=== PATIENT | female | born 1985 | race Two or more races ===

== ENCOUNTER → 2017-07-06 09:22 | Emergency (ER) | payer OTHER ==
[~2017-07-06 09:22] MED LIST: DOXYcycline CAP(*) 100 MG PO ONE; Lidocaine 1%* 5 ML VIAL ONE; cefTRIAXone VIAL(*) 250 MG VIAL IM ONE; metroNIDAZOLE TAB* 250 MG PO ONE
[2017-07-06 10:18] LABS: Hematocrit 38 % (35-47); Hemoglobin 12.7 g/dl (12.0-16.0); Mean Corpuscular HGB Conc 34 g/dl (31-36); Mean Corpuscular Hemoglobin 29 pg (27-31); Mean Corpuscular Volume 86 fL (80-97); Mean Platelet Volume 8 um3 (7.4-10.4); Red Blood Count 4.37 10^6/ul (4.0-5.4); Red Cell Distribution Width 14 % (10.5-15)
[2017-07-06 10:31] LABS: Albumin 4.4 g/dL (3.2-5.2); BUN/Creatinine Ratio 23.7 (8-20); EGFR African American 152.9 (>60); EGFR Non-African American 118.9 (>60); Globulin 3.5 g/dL (2-4); Total Bilirubin 0.3 mg/dL (0.2-1.0); Total Protein 7.9 g/dL (6.4-8.9)
--- NOTE | 2017-07-06 10:36 | ED ---
Back Pain - HPI Summary HPI Summary: 32F presents with back pain that radiates to her pelvic floor for one month. She denies any injury. She denies any loss of bowel or bladder or urinary retention. She denies any saddle anaesthesia. She denies any fever. She denies any IV drug use. She states her LMP was a week ago but was heavier than normal. She admits to vaginal discharge. She denies any dysuria, hematuria, flank pain, urgency or frequency. She denies any n/v/d/c. She states that pain feels like cramps. The back pain is sharp. She states she gets pain into bilateral hips. She denies any numbness or tingling down the legs. She has been taking ibuprofen for pain. pain is currently 10/25. - History of Current Complaint Chief Complaint: EDAbdPain Stated Complaint: LOWER BACK/PELVIC PAIN Time Seen by Provider: 07/06/17 09:40 Hx Last Menstrual Period: week ago Pain Intensity: 5 - Allergies/Home Medications Allergies/Adverse Reactions: Allergies Allergy/AdvReac Type Severity Reaction Status Date / Time Morphine Allergy Intermediate Abdominal Verified 07/06/17 09:28 Pain PMH/Surg Hx/FS Hx/Imm Hx Endocrine/Hematology History: Denies: Hx Diabetes, Hx Thyroid Disease Cardiovascular History: Denies: Hx Hypertension Respiratory History: Denies: Hx Asthma, Hx Chronic Obstructive Pulmonary Disease (COPD) GI History: Denies: Hx Ulcer - Surgical History Surgery Procedure, Year, and Place: CHOLECYSTECTOMY, 2 C-SECTIONS, spina bifida - Immunization History Date of Tetanus Vaccine: last 5 yrs Infectious Disease History: No Infectious Disease History: Denies: Hx Hepatitis, Hx Human Immunodeficiency Virus (HIV), Traveled Outside the [place] in Last 30 Days - Family History Known Family History: Positive: Diabetes - Social History Alcohol Use: Rare Substance Use Type: Reports: None Smoking Status (MU): Current Some Day Smoker Review of Systems Negative: Fever Negative: Chest Pain Negative: Shortness Of Breath Positive: Abdominal Pain - pelvic. Negative: Vomiting, Diarrhea, Nausea Negative: dysuria Positive: Myalgia - back pain All Other Systems Reviewed And Are Negative: Yes Physical Exam Triage Information Reviewed: Yes Vital Signs On Initial Exam: Initial Vitals Temp Pulse Resp BP Pulse Ox 97.3 F 87 16 150/80 99 07/06/17 09:22 07/06/17 09:22 07/06/17 09:22 07/06/17 09:22 07/06/17 09:22 Vital Signs Reviewed: Yes Appearance: Positive: Well-Appearing Skin: Positive: Warm, Dry Head/Face: Positive: Normal Head/Face Inspection Eyes: Positive: Normal, Conjunctiva Clear Respiratory/Lung Sounds: Positive: Clear to Auscultation, Breath Sounds Present Cardiovascular: Positive: Normal, RRR Abdomen Description: Positive: Soft, Other: - mild tenderness suprapubic region Bowel Sounds: Positive: Present Pelvic Exam: Positive: external exam normal, speculum exam normal, discharge - whitish discharge, tender w/ cervical motion Musculoskeletal: Positive: Strength/ROM Intact - back, Other - tenderness lower back, neg SLR Neurological: Positive: Reflexes Intact - patella, neg babinski Psychiatric: Positive: Normal - [place] Coma Scale Coma Scale Total: 15 Diagnostics - Vital Signs Vital Signs Temp Pulse Resp BP Pulse Ox 07/06/17 09:22 97.3 F 87 16 150/80 99 - Laboratory Lab Results: Lab Results 07/06/17 Range/Units 10:04 WBC 11.0 H (3.5-10.8) 10^3/ul RBC 4.37 (4.0-5.4) 10^6/ul Hgb 12.7 (12.0-16.0) g/dl Hct 38 (35-47) % MCV 86 (80-97) fL MCH 29 (27-31) pg MCHC 34 (31-36) g/dl RDW 14 (10.5-15) % Plt Count 363 (150-450) 10^3/ul MPV 8 (7.4-10.4) um3 Neut % (Auto) 69.3 (38-83) % Lymph % (Auto) 23.8 L (25-47) % Heard % (Auto) 4.4 (1-9) % Eos % (Auto) 1.3 (0-6) % Baso % (Auto) 1.2 (0-2) % Absolute Neuts (auto) 7.6 (1.5-7.7) 10^3/ul Absolute Lymphs (auto) 2.6 (1.0-4.8) 10^3/ul Absolute Monos (auto) 0.5 (0-0.8) 10^3/ul Absolute Eos (auto) 0.1 (0-0.6) 10^3/ul Absolute Basos (auto) 0.1 (0-0.2) 10^3/ul Absolute Nucleated RBC 0 10^3/ul Nucleated RBC % 0 Result Diagrams: 07/06/17 10:04 07/06/17 10:04 Lab Statement: Any lab studies that have been ordered have been reviewed, and results considered in the medical decision making process. - Ultrasound No standard instances Ultrasound Interpretation: No Acute Changes Ultrasound Interpretation Completed By: Radiologist Back Pain Course/Dx - Course Course Of Treatment: 32F presents with back pain that radiates to her pelvic floor for one month. She denies any injury. She denies any loss of bowel or bladder or urinary retention. She denies any saddle anaesthesia. She denies any fever. She denies any IV drug use. She states her LMP was a week ago but was heavier than normal. She admits to vaginal discharge. She denies any dysuria, hematuria, flank pain, urgency or frequency. She denies any n/v/d/c. She states that pain feels like cramps. The back pain is sharp. She states she gets pain into bilateral hips. She denies any numbness or tingling down the legs. She has been taking ibuprofen for pain. on exam slight tender in pelvic area. no CVA tenderness. tenderness lower back. neg SLR, neg babinski. patella intact. pelvic exam CMT tenderness. u/s normal. will treat for PID which may be causing back pain. will treat with rocephin, doxcycline, and flagyl. patient understand and agrees with plan. - Diagnoses Differential Diagnosis/HQI/PQRI: Positive: Herniated Disc, Strain, Other - PID Provider Diagnoses: Back pain, PID (acute pelvic inflammatory disease) Discharge - Discharge Plan Condition: Good Disposition: HOME Prescriptions: DOXYcycline CAP(*) [DOXYcycline 100MG CAP(*)] 100 mg PO BID #27 cap Metronidazole [Flagyl 500 MG TAB] 500 mg PO BID #27 tab Ondansetron ODT TAB* [Zofran 4 MG Odt TAB*] 4 mg PO Q6H PRN #16 tab.odt PRN Reason: Nausea Patient Education Materials: Pelvic Inflammatory Disease (ED) Referrals: Zenon Arce MD [Primary Care Provider] - Additional Instructions: Take Flagyl twice a day for 14 days Take doxycycline twice a day for 14 days, wear sunscreen and take with food Take Zofran every 6 hours for nausea Take Tylenol or ibuprofen for fever and pain every 6 hours Follow up with primary care physician Return to ED if develop any new or worsening symptoms
--- NOTE | 2017-07-06 11:37 | RAD ---
INDICATION: Diffuse pelvic pain "originating in the bilateral groins" COMPARISON: CT of the abdomen and pelvis dated July 17, 2014 TECHNIQUE: Real-time transabdominal only ultrasound examination of the female pelvis including grayscale and Doppler color flow imaging. FINDINGS: Uterus: The uterus is normal in size and echogenicity measuring 10.1 x 3.9 x 5.3 cm. The endometrial stripe is smooth and uniform measuring 5 mm in thickness. Ovaries: The right and left ovary measure 3.1 x 2.9 x 2.6 cm and 3.4 x 2.9 x 2.7 cm, respectively. Normal arterial and venous waveforms are identified. Appearance is within normal limits for the patient's age. There is no free fluid in the cul-de-sac. IMPRESSION: Normal transabdominal pelvic ultrasound.
[2017-07-06 12:22] LABS: Trichomonas Source Endocervical (Negative)
[2017-07-06 12:31] VITALS: BP 143/77
--- NOTE | 2017-07-07 19:03 | ED ---
Progress - Progress Note Progress Note: Pt's vaginal cx reveals gardnerella - she was d/c'd w/ flagyl. No change at this time. Course/Dx - Course Course Of Treatment: 32F presents with back pain that radiates to her pelvic floor for one month. She denies any injury. She denies any loss of bowel or bladder or urinary retention. She denies any saddle anaesthesia. She denies any fever. She denies any IV drug use. She states her LMP was a week ago but was heavier than normal. She admits to vaginal discharge. She denies any dysuria, hematuria, flank pain, urgency or frequency. She denies any n/v/d/c. She states that pain feels like cramps. The back pain is sharp. She states she gets pain into bilateral hips. She denies any numbness or tingling down the legs. She has been taking ibuprofen for pain. on exam slight tender in pelvic area. no CVA tenderness. tenderness lower back. neg SLR, neg babinski. patella intact. pelvic exam CMT tenderness. u/s normal. will treat for PID which may be causing back pain. will treat with rocephin, doxcycline, and flagyl. patient understand and agrees with plan. - Diagnoses Provider Diagnoses: Back pain, PID (acute pelvic inflammatory disease)
== END | disposition home or self-care (01) ==
LOC: ED 09:22
DX: M54.9 Dorsalgia, unspecified (principal); N73.9 Female pelvic inflammatory disease, unspecified; Z72.0 Tobacco use
CPT/HCPCS: 36415; 76856; 80053; 83690; 84702; 85025; 86141; 87480; 87491; 87510; 87591; 87661; 99283; A9270-GY; J0696

== ENCOUNTER 2019-07-29 12:28 | Emergency (ER) | payer OTHER ==
[2019-07-29 12:42] VITALS: BP 138/90
[2019-07-29 13:04] LABS: Influenza A Molecular POSITIVE (Negative)
--- NOTE | 2019-07-29 13:11 | UC ---
FLU HPI - HPI Summary HPI Summary: 34-year-old female presents with onset of fever, general malaise, fatigue, body aches, nasal congestion, runny nose, sore throat, a dry nonproductive cough yesterday. No known sick contact. Has not had her flu shot. Denies ear pain, dysphagia, chest pain, shortness of breath, abdominal pain, nausea, vomiting, or diarrhea. - History of Current Complaint Chief Complaint: UCGeneralIllness Stated Complaint: URI Time Seen by Provider: 07/29/19 12:55 Hx Obtained From: Patient Hx Last Menstrual Period: 06/18/19 Pain Intensity: 6 - Allergy/Home Medications Allergies/Adverse Reactions: Allergies Allergy/AdvReac Type Severity Reaction Status Date / Time morphine Allergy GI Upset Verified 07/29/19 12:43 PMH/Surg Hx/FS Hx/Imm Hx Previously Healthy: Yes - Denies significant PMH - Surgical History Surgical History: Yes Surgery Procedure, Year, and Place: CHOLECYSTECTOMY, 2 C-SECTIONS, spina bifida - Family History Known Family History: Positive: Diabetes - Social History Occupation: Unemployed Lives: Alone Alcohol Use: Rare Substance Use Type: None Smoking Status (MU): Never Smoked Tobacco Review of Systems All Other Systems Reviewed And Are Negative: Yes Constitutional: Positive: Fever, Chills, Fatigue Skin: Negative: Rash Eyes: Negative: Drainage, Eye Redness ENT: Positive: Sore Throat, Nasal Discharge, Sinus Congestion. Negative: Ear Ache, Sinus Pain/Tenderness Respiratory: Positive: Cough. Negative: Shortness Of Breath Cardiovascular: Negative: Palpitations, Chest Pain Gastrointestinal: Negative: Abdominal Pain, Vomiting, Diarrhea, Nausea Genitourinary: Positive: Negative Musculoskeletal: Positive: Myalgia Neurological: Positive: Negative Is Patient Immunocompromised?: No Physical Exam - Summary Physical Exam Summary: GENERAL APPEARANCE: Alert and cooperative obese adult female who appears to be in no acute distress. EYES: Conjunctiva clear. No drainage. EARS: External auditory canals and tympanic membranes clear, hearing grossly intact. NOSE: Moderate nasal congestion. Clear nasal discharge. THROAT: Pharyngeal erythema. No tonsilar inflammation, swelling, exudate, or lesions. Uvula midline. NECK: Neck supple, non-tender without lymphadenopathy. CARDIAC: Normal S1 and S2. No S3, S4 or murmurs. Rhythm is regular. There is no peripheral edema, cyanosis or pallor. Extremities are warm and well perfused. Capillary refill is less than 2 seconds. Peripheral pulses intact. LUNGS: Clear to auscultation without rales, rhonchi, wheezing or diminished breath sounds. Dry, non-productive cough. ABDOMEN: Positive bowel sounds. Soft, nondistended, nontender. No guarding or rebound. No masses or hepatosplenomegally. MUSKULOSKELETAL: ROM intact to all extremities. No joint erythema or tenderness. Normal muscular development. Normal gait. SKIN: Skin normal color, texture and turgor with no lesions or eruptions. Triage Information Reviewed: Yes Vital Signs: Initial Vital Signs Temp 101.8 F 07/29/19 12:40 Pulse 96 07/29/19 12:40 Resp 20 07/29/19 12:40 BP 138/90 07/29/19 12:40 Pulse Ox 100 07/29/19 12:40 Vital Signs Reviewed: Yes Flu Course/Dx - Course Course Of Treatment: 34-year-old female presents with onset of fever, general malaise, fatigue, body aches, nasal congestion, runny nose, sore throat, a dry nonproductive cough yesterday. No known sick contact. Has not had her flu shot. Denies ear pain, dysphagia, chest pain, shortness of breath, abdominal pain, nausea, vomiting, or diarrhea. Patient had an elevated temperature of 101.8 F. Vital signs stable. On exam she was noted to have moderate nasal congestion, clear nasal discharge, pharyngeal erythema without tonsillar swelling or exudate, no cervical lymphadenopathy, clear bilateral breath sounds, a dry, nonproductive cough, and otherwise unremarkable exam. Rapid influenza was positive for influenza A. Reviewed results with the patient. Discussed the risks and benefits of starting Tamiflu and patient is electing to do so at this time. Additionally recommending symptomatic treatment for the flu. She is to return here or with her primary care provider in 5-7 days if symptoms are not improving. Anticipatory guidance and warning symptoms were reviewed with the patient. Verbalizes understanding and agrees with plan of care. - Differential Dx/Diagnosis Differential Diagnosis/HQI/PQRI: Bronchitis, Influenza, Pneumonia, Upper Respiratory Infection Provider Diagnosis: Influenza A Discharge ED - Sign-Out/Discharge Documenting (check all that apply): Patient Departure All imaging exams completed and their final reports reviewed: No Studies - Discharge Plan Condition: Stable Disposition: HOME Prescriptions: Benzonatate CAP* [Tessalon 100 MG CAP*] 100 mg PO TID PRN #21 cap PRN Reason: Cough Oseltamivir CAP* [Tamiflu CAP*] 75 mg PO BID #10 cap Patient Education Materials: Influenza (ED) Referrals: No Primary Care Phys,NOPCP [Primary Care Provider] - Additional Instructions: Your flu test in the clinic today was positive for influenza A. Start Tamiflu 1 capsule twice a day for 5 days. Get plenty of rest. Drink plenty of fluids to avoid dehydration especially if you are running any fever. Take over the counter acetaminophen (Tylenol) or ibuprofen (Advil, Motrin) according to directions as needed for pain or fever. Use an over the counter decongestant such as Sudafed according to directions to help with congestion. Take Tessalon Perles 1 cap every 8 hours as needed for cough. Use salt water gargles several times a day if you have a sore throat. You may also use Chloraseptic spray or Cepacol lonzenges according to directions which contain a numbing medication and can provide some temporary relief from your sore throat. Return here of follow up with your primary care provider in 7 days if symptoms persist. Seek immediate medical attention in the emergency room if you have fever greater than 100.5 F despite taking acetaminophen or ibuprofen, have chest pain , difficulty breathing, are unable to swallow, or have any worsening of symptoms. - Billing Disposition and Condition Condition: STABLE Disposition: Home
== END 2019-07-29 13:23 | disposition home or self-care (01) ==
LOC: UCEAST 12:28
DX: J09.X2 Influenza due to identified novel influenza A virus with other respiratory manifestations (principal); Z88.5 Allergy status to narcotic agent
CPT/HCPCS: 99212; G0463